=== PATIENT | male | born 1950 | race Caucasian/White ===

== ENCOUNTER 2022-11-17 12:26 | Day surgery (SDC) | payer MEDICARE, MEDICAID ==
[~2022-11-17] VITALS: Ht 165.1 cm; Wt 67.7 kg
[2022-11-17] VITALS (7 sets, daily range): BP systolic 116–157; BP diastolic 70–104
[~2022-11-17 12:26] MED LIST: ASPI81TA52 PO; CLOP75TA34 PO; ENAL-76 PO; FENO160T13 PO; ROSU20TA2 PO
[2022-11-17] MEDS ORDERED: LORazepam 0.5 MG tablet PO PRN (12:50)
[2022-11-17] MEDS ORDERED: normal saline 1,000 ML IV SCH (12:50)
[2022-11-17] MEDS ORDERED: diphenhydrAMINE 25mg capsule PO PRN (12:50)
[2022-11-17] MEDS ORDERED: APIX5TAB3 PO (13:05)
[2022-11-17] MEDS ORDERED: FLO0.4C PO (13:05)
[2022-11-17] MEDS ORDERED: DILT120C91 PO (13:05)
[2022-11-17] MEDS ORDERED: fentaNYL/PF 50MCG/1 ML 2ML syringe ONE (14:27)
[2022-11-17] MEDS ORDERED: LIDOcaine 1% (10mg/ml) 2ml vial ONE (14:27)
[2022-11-17] MEDS ORDERED: verapamil 2.5 mg/ml inj IV ONE (14:27)
[2022-11-17] MEDS ORDERED: iohexol 350MG/ML 100ml bottle IV ONE (14:27)
[2022-11-17] MEDS ORDERED: midazolam 1 mg/ML 2ml injection ONE (14:27)
[2022-11-17] MEDS ORDERED: heparin 1,000unit/ml 10ml vial 10 ML ONE (14:27)
[2022-11-17] MEDS ORDERED: nitroGLYCERIN-Tridil 50MG/D5W 250 ML IV ONE (14:28)
[2022-11-17 15:52] LABS: ISTAT HGB ART 11.6 g/dl (14.0-17.9); ISTAT Hct ART 34 %PCV (42-52); ISTAT O2 SATURATION ARTERIAL 95 % (95-98); ISTAT SOURCE ART
== END 2022-11-17 18:10 | disposition home or self-care (01) ==
LOC: SSTAY O 12:26
PROVIDERS: ATTEND Student in an Organized Health Care Education/Training Program
DX: I35.0 Nonrheumatic aortic (valve) stenosis (principal); I10 Essential (primary) hypertension; E78.5 Hyperlipidemia, unspecified; I48.91 Unspecified atrial fibrillation; F41.9 Anxiety disorder, unspecified; I48.0 Paroxysmal atrial fibrillation; Z88.6 Allergy status to analgesic agent; Z88.2 Allergy status to sulfonamides; Z79.899 Other long term (current) drug therapy; Z98.890 Other specified postprocedural states
CPT/HCPCS: 82803; 85014; 93005; 93451; 99152; 99153; A6258; C1769; C1894; J1644; J2250; J3010; J3490; J7030; Q0163; Q9967; 93456; A6449; C1751

== ENCOUNTER → 2022-12-25 | Outpatient (CLI) | payer MEDICARE, MEDICAID ==
[~2022-12-25] MED LIST changes: +APIX5TAB3 PO; -ASPI81TA52 PO; -CLOP75TA34 PO; +DILT120C91 PO; -ENAL-76 PO; -FENO160T13 PO; +FLO0.4C PO; +IODIXANOL 320 MG/ML INFUS..BTL 100ML IV ONE
[2022-12-25 11:26] LABS: BASOPHILS % (AUTO) 0.2 % (0-1); EOSINOPHILS # (AUTO) 0.1 X10'3 (0-0.9); EOSINOPHILS % (AUTO) 0.9 % (0-6); HEMATOCRIT 41.3 % (42.0-52.0); HEMOGLOBIN 14.2 g/dl (14.0-17.9); LYMPHOCYTES % (AUTO) 14.3 % (21-51); MEAN CORPUSCULAR HGB CONC 34.3 g/dL (33.0-36.5); MEAN CORPUSCULAR VOLUME 93.2 FL (78-98); MEAN PLATELET VOLUME 7.4 FL (7.4-10.4); MONOCYTES # (AUTO) 0.4 X10'3 (0-0.9); MONOCYTES % (AUTO) 5.1 % (2-12); NEUTROPHILS # (AUTO) 5.5 X10'3 (1.8-7.7); NEUTROPHILS % (AUTO) 79.5 % (42-75); PLATELET COUNT 186 X10'3 (140-440); RED BLOOD COUNT 4.43 X10'6 (4.70-6.10); RED CELL DISTRIBUTION WIDTH 13.1 % (11.5-14.5); WHITE BLOOD COUNT 6.9 X10'3 (4.5-11.0)
[2022-12-25 11:34] LABS: APTT 32 SECONDS (22-32)
[2022-12-25 11:36] LABS: ALANINE AMINOTRANSFERASE 27 U/L (12-78); ALBUMIN/GLOBULIN RATIO 1.1 (1.1-1.5); ALKALINE PHOSPHATASE 60 IU/L (46-116); ANION GAP 6 (8-16); ASPARTATE AMINO TRANSFERASE 34 U/L (10-37); BILIRUBIN,TOTAL 0.9 MG/DL (0.1-1.0); BLOOD UREA NITROGEN 11 MG/DL (7-18); BUN/CREATININE RATIO 12.5 (5.4-32.0); CALCIUM 8.9 MG/DL (8.5-10.1); CHLORIDE 103 MMOL/L (99-107); CREATININE 0.88 MG/DL (0.60-1.10); GLUCOSE 191 MG/DL (70-104); SODIUM 137 MMOL/L (135-145); TOTAL CARBON DIOXIDE 28.1 MMOL/L (24-32); TOTAL PROTEIN 7.7 G/DL (6.4-8.2); eGFR 86 ML/MIN
== END | disposition home or self-care (01) ==
LOC: RAD 10:28
PROVIDERS: ATTEND Internal Medicine Cardiovascular Disease
DX: I51.7 Cardiomegaly (principal); I35.0 Nonrheumatic aortic (valve) stenosis; R06.02 Shortness of breath; I65.29 Occlusion and stenosis of unspecified carotid artery; I70.0 Atherosclerosis of aorta; J98.4 Other disorders of lung; N40.0 Benign prostatic hyperplasia without lower urinary tract symptoms; M47.814 Spondylosis without myelopathy or radiculopathy, thoracic region; M19.011 Primary osteoarthritis, right shoulder; Z90.49 Acquired absence of other specified parts of digestive tract; Z98.890 Other specified postprocedural states
CPT/HCPCS: 36415; 71046; 71275; 74174; 80053; 85025; 85610; 85730; 94010; 94727; 94729; J3490; Q9967

== ENCOUNTER 2023-11-18 09:23 | Day surgery (SDC) | payer MEDICARE, MEDICAID ==
[2023-11-11 15:59] LABS: BASOPHILS % (AUTO) 0.3 % (0-1); EOSINOPHILS # (AUTO) 0.1 X10'3 (0-0.9); EOSINOPHILS % (AUTO) 1.9 % (0-6); LYMPHOCYTES # (AUTO) 1.2 X10'3 (1.1-4.8); LYMPHOCYTES % (AUTO) 18.4 % (21-51); MEAN CORPUSCULAR HEMOGLOBIN 31.6 PG (27.0-31.0); MEAN CORPUSCULAR VOLUME 92.9 FL (78-98); MEAN PLATELET VOLUME 7.8 FL (7.4-10.4); MONOCYTES # (AUTO) 0.5 X10'3 (0-0.9); MONOCYTES % (AUTO) 7.3 % (2-12); NEUTROPHILS # (AUTO) 4.8 X10'3 (1.8-7.7); NEUTROPHILS % (AUTO) 72.1 % (42-75); PRE OP HEMATOCRIT 39.7 % (42.0-52.0); PRE OP HEMOGLOBIN 13.5 g/dL (14.0-17.9); PRE OP PLATELET COUNT 163 X10'3 (140-440); PRE OP WHITE BLOOD COUNT 6.7 10'3 (4.8-10.8); RED BLOOD COUNT 4.27 X10'6 (4.70-6.10); RED CELL DISTRIBUTION WIDTH 13.2 % (11.5-14.5)
[2023-11-11 16:20] LABS: ALKALINE PHOSPHATASE 63 IU/L (46-116); BLOOD UREA NITROGEN 12 MG/DL (7-18); BUN/CREATININE RATIO 14.5 (10.0-20.0); CALCIUM 8.9 MG/DL (8.5-10.1); CHLORIDE 104 MMOL/L (99-107); CREATININE 0.83 MG/DL (0.60-1.10); PRE OP ALT 26 U/L (30-65); PRE OP ANION GAP 8 (8-16); PRE OP AST 24 U/L (10-37); PRE OP BILIRUB, TOTAL 0.7 MG/DL (0.0-1.0); PRE OP GLUCOSE 88 MG/DL (70-104); PRE OP POTASSIUM 3.5 MMOL/L (3.4-5.1); PRE OP SODIUM 140 MMOL/L (135-145); TOTAL CARBON DIOXIDE 28.3 MMOL/L (24-32); TOTAL PROTEIN 7.9 G/DL (6.4-8.2); eGFR > 90 ML/MIN
[~2023-11-18] VITALS: Ht 160 cm; Wt 60.9 kg
[2023-11-18] VITALS (15 sets, daily range): BP systolic 121–141; BP diastolic 64–86; PULSE 72–99; RESP 13–16; TEMP 98.7; O2SAT 97–98
[~2023-11-18 09:23] MED LIST changes: -APIX5TAB3 PO; +APIX5TAB5 PO; -DILT120C91 PO; +DILT180C76 PO; -IODIXANOL 320 MG/ML INFUS..BTL 100ML IV ONE; +MIRT-88 PO; +OMEP20CA16 PO; -ROSU20TA2 PO; +ROSU20TA73 PO; +cefazolin 2gm/D5W 100mL 100 ML IV ONE; +famotidine 20mg tablet PO ONE; +ringers solution, lacted 1,000 ML IV SCH; +tamsulosin 0.4mg capsule PO ONE
[2023-11-18] MEDS ORDERED: fentaNYL/PF 50MCG/1 ML 2ML syringe ONE (11:57)
[2023-11-18] MEDS ORDERED: LIDOcaine 1% (10mg/ml)w/preservative inj. 20ml MDV ONE (12:20)
[2023-11-18] MEDS ORDERED: BUPIVAcaine/PF 2.5mg/ml (0.25%) 10ml vial ONE (12:21)
[2023-11-18] MEDS ORDERED: ondansetron/PF 4mg/2ml inj IV PRN (12:35)
[2023-11-18] MEDS ORDERED: HYDROmorphone/PF 0.2 MG/ML SYRINGE IV PRN ×2 (12:35)
[2023-11-18] MEDS ORDERED: ringers solution, lacted 1,000 ML IV SCH (12:35)
[2023-11-18] MEDS ORDERED: morphine 2 MG/ML inj. syringe IV PRN (12:35)
[2023-11-18] MEDS ORDERED: sevoflurane 250ml liquid IH ONE (12:40)
[2023-11-18] MEDS ORDERED: ePHEDrine 50MG/ML INJ. ONE (12:40)
[2023-11-18] MEDS ORDERED: propofol inj 20 ML IV ONE (12:41)
[2023-11-18] MEDS ORDERED: LIDOcaine 2% (20mg/ml) 5ml vial ONE (12:41)
[2023-11-18] MEDS ORDERED: LIDOcaine 1% (10mg/ml)w/preservative inj. 20ml MDV IJ ONE (13:12)
[2023-11-18] MEDS ORDERED: BUPIVAcaine/PF 2.5mg/ml (0.25%) 10ml vial IJ ONE (13:13)
[2023-11-18] MEDS ORDERED: dexamethasone sod phosphate 4mg/ml inj. ONE (13:29)
[2023-11-18] MEDS ORDERED: ondansetron/PF 4mg/2ml inj ONE (13:29)
[2023-11-18] MEDS ORDERED: neostigmine methylsulfate 1 MG/ML 10ml vial ONE (13:29)
[2023-11-18] MEDS ORDERED: rocuronium 10mg/ml inj IV ONE (13:29)
[2023-11-18] MEDS ORDERED: glycopyrrolate 0.2mg/ml inj ONE (13:29)
[2023-11-18] MEDS ORDERED: acetaminophen 1,000mg/100ml IV 100 ML IV ONE (13:29)
[2023-11-18] MEDS ORDERED: HYDROcodone/acetaminophen 5mg/325mg tablet PO PRN (14:00)
== END 2023-11-18 16:25 | disposition home or self-care (01) ==
LOC: PAS 09:23
PROVIDERS: ATTEND Surgery
DX: K40.20 Bilateral inguinal hernia, without obstruction or gangrene, not specified as recurrent (principal); I25.10 Atherosclerotic heart disease of native coronary artery without angina pectoris; I10 Essential (primary) hypertension; I48.91 Unspecified atrial fibrillation; N40.0 Benign prostatic hyperplasia without lower urinary tract symptoms; M06.9 Rheumatoid arthritis, unspecified; F41.9 Anxiety disorder, unspecified; M19.90 Unspecified osteoarthritis, unspecified site; K21.9 Gastro-esophageal reflux disease without esophagitis; E78.5 Hyperlipidemia, unspecified; Z87.891 Personal history of nicotine dependence; Z98.890 Other specified postprocedural states; Z90.49 Acquired absence of other specified parts of digestive tract; Z95.2 Presence of prosthetic heart valve; Z88.2 Allergy status to sulfonamides; Z79.899 Other long term (current) drug therapy; Z80.1 Family history of malignant neoplasm of trachea, bronchus and lung; Z82.49 Family history of ischemic heart disease and other diseases of the circulatory system; Z83.3 Family history of diabetes mellitus
CPT/HCPCS: 36415; 49650; 80053; 82948; 85025; C1781; J0131; J0690; J1100; J2405; J2704; J2710; J3010; J3490; J7030; J7120; Z7506; Z7508; Z7512; A4215; A4314; A4618

== ENCOUNTER 2024-07-20 06:24 | Outpatient (CLI) | payer MEDICARE, MEDICAID ==
[~2024-07-20 06:24] MED LIST changes: -cefazolin 2gm/D5W 100mL 100 ML IV ONE; -famotidine 20mg tablet PO ONE; -ringers solution, lacted 1,000 ML IV SCH; -tamsulosin 0.4mg capsule PO ONE
== END 2024-07-20 23:59 | disposition home or self-care (01) ==
LOC: TAVR 06:24
PROVIDERS: ATTEND Internal Medicine Cardiovascular Disease
DX: Z48.812 Encounter for surgical aftercare following surgery on the circulatory system (principal); Z95.2 Presence of prosthetic heart valve